=== PATIENT | female | born 1950 | race Caucasian/White ===

== ENCOUNTER → 2023-11-20 08:52 | Outpatient (REF) | payer OTHER, SELFPAY | LOC: WDC 08:52 | PROVIDERS: ATTENDING PHYSICIAN Physician Assistant | DX: Z12.31 Encounter for screening mammogram for malignant neoplasm of breast (principal) | CPT/HCPCS: 77063; 77067 ==

== ENCOUNTER → 2024-03-17 12:48 | Outpatient (REF) | payer OTHER, SELFPAY | LOC: WDC 12:48 | PROVIDERS: ATTENDING PHYSICIAN Obstetrics & Gynecology; FAMILY PHYSICIAN Physician Assistant | DX: R92.333 Mammographic heterogeneous density, bilateral breasts (principal) | CPT/HCPCS: 76641 ==

== ENCOUNTER → 2024-09-15 13:23 | Outpatient (REF) | payer OTHER, SELFPAY | LOC: PAVMRI 13:23 | PROVIDERS: ATTENDING PHYSICIAN Physician Assistant | DX: M54.12 Radiculopathy, cervical region (principal); H53.8 Other visual disturbances | CPT/HCPCS: 72141 ==

== ENCOUNTER → 2025-02-05 08:01 | Outpatient (REF) | payer OTHER, SELFPAY | LOC: HWRAD 08:01 | PROVIDERS: ATTENDING PHYSICIAN Family Medicine | DX: L29.9 Pruritus, unspecified (principal); E78.5 Hyperlipidemia, unspecified; L50.9 Urticaria, unspecified | CPT/HCPCS: 76700 ==